=== PATIENT | male | born 1995 | race Two or more races ===

== ENCOUNTER 2024-10-25 08:12 | Day surgery (SDC) | payer MEDICAID ==
[2024-10-22 12:42] LABS: Urine Bacteria None Seen /hpf (None Seen)
[2024-10-22 12:58] LABS: Basophils # (auto) 0.1 10 ^3/uL (0-0.2); Basophils % (auto) 0.9 % (0.0-2.0); Eosinophils # (auto) 0.3 10 ^3/uL (0-0.8); Eosinophils % (auto) 3.3 % (0.0-7.0); Hematocrit 49.2 % (41.0-53.0); Hemoglobin 16.9 g/dL (13.5-17.5); Lymphocytes % (auto) 31.5 % (10.0-50.0); Mean Corpuscular Hemoglobin 29.3 pg (28.0-32.0); Mean Corpuscular Hgb Conc. 34.3 g/dL (32.0-36.0); Mean Corpuscular Volume 85.2 fL (80.0-100.0); Monocytes # (auto) 0.6 10 ^3/uL (0-1.3); Monocytes % (auto) 6.2 % (0.0-12.0); Neutrophils # (auto) 5.6 10 ^3/uL (1.6-8.6); Neutrophils % (auto) 58.1 % (37.0-80.0); Nucleated Red Blood Cells % 0.1 %; Platelet Count (auto) 223 10^3/uL (140-450); Red Blood Cells 5.77 10^6/uL (4.5-5.90); Red Cell Distribution Width 13.8 % (11.8-14.3); White Blood Cell 9.6 10^3/uL (4.4-10.8)
[2024-10-22 13:04] LABS: Urine Blood 1+ /uL (Negative); Urine Clarity Clear (Clear); Urine Color Yellow (Yellow); Urine Mucus FEW (None Seen); Urine Protein, UAD 1+ (Negative); Urine Specific Gravity 1.026 (1.001-1.035); Urine Squamous Epithelial Cell FEW /hpf (<5); Urine Urobilinogen Normal (Negative); Urine WBC < 1 /HPF (0-3); Urine pH 5.5 (5.0-9.0)
[2024-10-22 13:14] LABS: INR 1.01 (0.9-1.15); Partial Thromboplastin Time 26.6 SEC (24.5-34.5); Prothrombin Time 10.7 sec (9.3-11.8)
[2024-10-22 13:40] LABS: Anion Gap 9 (5-15); BUN/Creatinine Ratio 13.6 (10.0-20.0); Blood Urea Nitrogen 11 mg/dL (9-23); Calcium 10.2 mg/dL (8.7-10.4); Carbon Dioxide 26 mmol/L (20-31); Chloride 105 mmol/L (98-107); Potassium 3.9 mmol/L (3.5-5.1); Sodium 140 mmol/L (136-145)
[2024-10-22 13:41] LABS: Alanine Aminotransferase 130 U/L (7-40); Albumin 5.2 g/dL (3.2-4.8); Alkaline Phosphatase 195 U/L (46-116); Aspartate Aminotransferase 63 U/L (13-40); Bilirubin, Total 0.5 mg/dL (0.2-1.0); Glucose 125 mg/dL (74-106)
[~2024-10-25] VITALS: Ht 182.9 cm; Wt 136.1 kg
[~2024-10-25 08:12] MED LIST: AMLO1TAB23 PO; TRAZ-228 PO
[2024-10-25] MEDS ORDERED: SODIUM CHLORIDE LOCK 10 ML ONE (10:24)
[2024-10-25] MEDS ORDERED: diphenhdrAMINE HCL 50 MG/1 ML VL ONE (10:24)
[2024-10-25] MEDS ORDERED: MIDAZOLAM HCL 5 MG/ML-1ML VIAL ONE (10:24)
[2024-10-25] MEDS ORDERED: fentaNYL CITRATE 100 MCG/2 ML VL ONE (10:25)
[2024-10-25] MEDS: MIDAZOLAM HCL 5 MG/ML-1ML VIAL IV ONE (10:59)
[2024-10-25 11:20] VITALS: PULSE 113; RESP 14; TEMP 98.9; O2SAT 93
--- NOTE | 2024-10-25 11:24 | DVHNC2 ---
Procedure - DATE OF PROCEDURE: October 25, 2024 SURGEON: CONG AYALA MD REFERRING PROVIDER: [facility] PROCEDURE PERFORMED: 1. Colonoscopy with moderate sedation PRE-PROCEDURE DIAGNOSIS: 1. History of diverticulitis POSTPROCEDURE DIAGNOSIS: 1. Moderate left-sided diverticulosis 2. Stool in the right colon 3. 2+ internal hemorrhoids INDICATIONS FOR PROCEDURE: The patient is a 29-year-old male presents for outpatient colonoscopy for history of diverticulitis. MEDICATIONS USED: Eight mg of Versed IV and 100 mcg IV given in incremental doses DETAILS OF THE PROCEDURE: Informed consent was obtained after risks, benefits, and alternatives, were discussed at length with the patient. The patient gave consent to the procedure as well as the medication used for sedation. The patient was placed in the left lateral decubitus position. Digital rectal exam showed internal hemorrhoids. An Olympus variable torsion adult colonoscope was inserted into the rectum and advanced to the cecum. The cecum was identified by the ileocecal valve and the appendiceal orifice. The scope was then withdrawn. The prep was good with stool seen in the right colon. There were no large polyps, masses, strictures, or arteriovenous malformation seen. The cecal base could not be cleared due to solid stool. The patient had moderate left-sided diverticulosis extending from approximately 25 cm to 50 cm. There was mild inflammation but no active diverticulitis seen. Retroflexion showed internal hemorrhoids and 6 minute withdrawal time was noted. The patient tolerated the procedure well. [place] BOWEL PREP SCORE: 7 COLONOSCOPY START TIME: 1106 CECUM TIME: 1108 COLONOSCOPY END TIME: 1114 IMPRESSION: 1. Moderate diverticulosis left colon 2. 2+ internal hemorrhoids RECOMMENDATIONS: 1. High-fiber diet 2. Repeat colonoscopy it screening age unless otherwise indicated 3. Diverticulosis information will be given, on ways to prevent recurrent diverticulitis 4. Follow up in GI Clinic I WOULD LIKE TO THANK [facility] FOR THIS REFERRAL CONG AYALA MD Oct 25, 2024 11:24
[2024-10-25 11:55] VITALS: BP 142/93; PULSE 95; RESP 21; O2SAT 94
== END 2024-10-25 12:15 | disposition home or self-care (01) ==
LOC: GI 08:12
PROVIDERS: ATTEND Specialist
DX: K57.30 Diverticulosis of large intestine without perforation or abscess without bleeding (principal); K57.92 Diverticulitis of intestine, part unspecified, without perforation or abscess without bleeding; K64.1 Second degree hemorrhoids; K52.9 Noninfective gastroenteritis and colitis, unspecified; I10 Essential (primary) hypertension; Z79.899 Other long term (current) drug therapy; Z98.890 Other specified postprocedural states
CPT/HCPCS: 36415; 45378; 80053; 81001; 85025; 85610; 85730; J1200; J2250; J3010; 99152